=== PATIENT | male | born 1985 | race Caucasian/White ===

== ENCOUNTER 2017-11-07 16:32 | Emergency (ER) | payer OTHER ==
[~2017-11-07] VITALS: Wt 154.2 kg
== END 2017-11-07 17:16 | disposition home or self-care (01) ==
LOC: ED 16:32
DX: S61.411A Laceration without foreign body of right hand, initial encounter (principal); Z88.0 Allergy status to penicillin; W26.0XXA Contact with knife, initial encounter; Y93.89 Activity, other specified; Y92.89 Other specified places as the place of occurrence of the external cause; Y99.8 Other external cause status